=== PATIENT | female | born 1950 | race Caucasian/White ===

== ENCOUNTER 2016-09-07 10:23 | Observation (INO) | payer BC ==
--- NOTE | ~2016-09-07 | OP ---
Record Of Operation [facility] [address] [place]. [address] NAME: SHANIA CHEUNG : 46 STATUS : ADM James PAT#: [id number] AGE: 66 ADM/REG DATE : 09/07/16 MR#: [id number] REPORT SERV DATE: 09/08/16 DICTATED BY: URBAN LINDO DATE: 09/08/16 REPORT STATUS : Draft TRANSCRIBED BY: MODL DATE: 09/08/16 DATE OF PROCEDURE: 09/08/2016 BONIFACIO AND CARDIOVERSION REPORT REQUESTING PROVIDERS: Dr. Krystina England and Dr. Miki Abbott of the AFib Observation Unit. INDICATION: This is a 66-year-old female with atrial fibrillation and rapid ventricular response. She has been on therapeutic Eliquis and oral Cardizem for three to four weeks. Pre-procedure transthoracic echocardiogram demonstrating mitral valve prolapse and mild mitral regurgitation. PROCEDURES PERFORMED: Included 2D, 3D, color, and spectral Doppler. 3D interrogation of the mitral valve was performed with personal online manual manipulation of the 3D data set to further assess mitral valve anatomy. Informed consent was obtained, signed on the chart prior to proceeding. A time-out was performed. Sedation was per Anesthesia, and esophageal intubation was without difficulty. TECH: RECORDING QUALITY: The overall quality of the study was adequate. FINDINGS: Chambers: 1. The left atrium is moderately dilated. The left atrial appendage was examined with multiple angulations and was large with some pectinates but no thrombus identified. Color Doppler findings were normal, and Spectral Doppler velocity exceeded 20 cm/second. 2. The left ventricle is normal in size with a visually estimated LVEF of 60%. There were no regional wall motion abnormalities. 3. The right atrium is at the upper limits of normal in size. Superior and inferior vena cava appeared normal. There was no mass thrombus seen. 4. The right ventricle is normal in size and systolic function. Valves: 1. The aortic valve morphology is trileaflet with adequate mobility. There was trivial aortic regurgitation. 2. 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 Mitral leaflets were mildly thickened, and there was posterior, P2 segment, prolapse noted. There was mild-moderate, somewhat eccentric, anteriorly directed mitral regurgitation seen. 3D interrogation of the mitral valve confirmed thickened mitral leaflets with mild-moderate isolated P2 prolapse. The left superior and right superior pulmonary veins were evaluated with no systolic flow reversal seen. 3. The pulmonic valve was grossly normal with adequate mobility. Pulmonic regurgitation was not assessed. 4. The tricuspid valve morphology was normal with fully mobile leaflets. There was mild Record Of Operation [id number] [place]. [address] NAME: SHANIA CHEUNG : 46 STATUS : ADM James PAT#: [id number] AGE: 66 ADM/REG DATE : 09/07/16 MR#: [id number] REPORT SERV DATE: 09/08/16 DICTATED BY: URBAN LINDO. DATE: 09/08/16 REPORT STATUS : Draft TRANSCRIBED BY: MODL DATE: 09/08/16 tricuspid regurgitation. OTHER: The interatrial septum was examined with multiple angulations and was intact by visual inspection with no evidence of interatrial shunt seen by color Doppler. There was no pericardial effusion. The descending thoracic aorta and aortic arch were normal in caliber with no aneurysmal dilatation and no dissection. There was no significant atherosclerosis seen. There was trivial pleural fluid. CARDIOVERSION: A single synchronized 200 joule biphasic energy shock was delivered with initial conversion from atrial fibrillation RVR to atrial flutter in a 2:1 conduction at a rate of 120 and subsequent and immediate termination to sinus rhythm with occasional PACs and a heart rate of 60 to 70 beats per minute. COMPLICATIONS: None. CONCLUSION: 1. No left atrial or left atrial appendage thrombus. 2. Successful cardioversion to sinus rhythm. 3. Moderate left atrial enlargement. 4. 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 5. Normal LV size with preserved EF, 60%. AEA/MODL Urban Lindo M.D. / [id number] CC: Krystina England, MSN, [employer]-BC Renee Mccabe M.D.
--- NOTE | ~2016-09-07 | HP ---
History And Physical [id number] [facility] [place]. [address] NAME: SHANIA CHEUNG : 46 STATUS : ADM James PAT#: [id number] AGE: 66 ADM/REG DATE : 09/07/16 MR#: [id number] REPORT SERV DATE: 09/07/16 DICTATED BY: GISEL KILGORE DATE: 09/07/16 REPORT STATUS : Draft TRANSCRIBED BY: MODNichole DATE: 09/07/16 DATE OF ADMISSION: 09/07/2016 CARBONATION EQUIPMENT OPERATOR: Ubaldo Fernando M.D. CHIEF COMPLAINT: Worsening shortness of breath with atrial fibrillation. HISTORY OF PRESENT ILLNESS: This is a very pleasant 66-year-old white female with recently identified atrial fibrillation in early July 2016 with plans for scheduled DC CV cardioversion on 09/08/2016, presents to our facility with worsening shortness of breath. The patient states that on September 07 around 0300 hours, she awoke with audible congestion and difficulty breathing. She went to the restroom and with exertion, had an audible rattle. She attempted to lie back down, but was uncomfortable flat. She requires being propped on several pillows. Later in the morning, she notified both her PCP and Dr. Fernando's office about these symptoms and it was recommended that she come to the emergency room for further evaluation and treatment. The patient reports shortness of breath. Denies any nausea, diaphoresis, dizziness, or belching. No chest pain, pressure, or tightness. The patient denies any personal history of myocardial infarction, stroke, DVT, or pulmonary embolus. The patient denies any recent fever, chills, unaware of palpitations. No syncopal episodes. Denies usual PND or orthopnea. Of note, the patient was seen at physician's care on July 23, 2016 for a cough. She was given steroids and antibiotics and then was seen at [facility] on July 28, 2016 for worsening shortness of breath and found to be in atrial fibrillation with RVR. At that time, it was planned that she began Eliquis and Cardizem p.o., which she has continued and she states she has not missed any doses of her Eliquis with a planned cardioversion scheduled for September 08, 2016. Due to the change in her symptoms and the worsening shortness of breath, she came to the hospital today. CHADS-VASC score of 3 for age, gender, and hypertension. PAST MEDICAL HISTORY: 1. Atrial fibrillation with RVR with planned DC CV on 09/08/2016, on Cardizem and Eliquis. 2. Hypertension. 3. Dyslipidemia. 4. Obesity. 5. Denies diabetes. 6. Psoriatic arthritis. 7. Positive family history for early CAD and stroke. PAST SURGICAL HISTORY: 1. Cholecystectomy. 2. Arthroscopic repair of left knee. 3. RK. History And Physical [address] [address] NAME: SHANIA CHEUNG : 46 STATUS : ADM James PAT#: [id number] AGE: 66 ADM/REG DATE : 09/07/16 MR#: [id number] REPORT SERV DATE: 09/07/16 DICTATED BY: GISEL KILGORE DATE: 09/07/16 REPORT STATUS : Draft TRANSCRIBED BY: EMA DATE: 09/07/16 4. Hysterectomy. SOCIAL HISTORY: She is with three children. She works in [employer]. She does not have a structured exercise routine. Denies tobacco, alcohol, or illicits. FAMILY HISTORY: Father with heart failure, of a heart attack at 77, with a history of a stroke. Mother with a history of stroke, at 77. Brother with a heart attack in his late 50s, remains alive at the age of 62 with a history of stroke, stents, and Parkinson's. REVIEW OF SYSTEMS: A fourteen-point review of systems performed, significant for HPI including snores per report with no formal sleep study. Otherwise, complete review of systems obtained and negative. ALLERGIES: LISINOPRIL, ANGIOEDEMA. HOME MEDICINES: Losartan 100 mg daily, ranitidine 300 mg twice daily, Zyrtec 10 mg twice daily, Eliquis 5 mg twice daily, atorvastatin 10 mg nightly, diltiazem CD 240 daily, hydrochlorothiazide 12.5 mg daily, leflunomide 10 mg daily, and [place] twice daily. PHYSICAL EXAMINATION: VITAL SIGNS: Blood pressure 128/86, pulse 114, respirations 18, temperature 97.6. GENERAL: Cooperative, in no apparent distress. HEENT: Pupils 2 mm, sclera nonicteric. Nares patent. Moist mucous membranes. No xanthelasma. NECK: Trachea midline, no thyromegaly. No JVD. No bruits. LYMPH: No cervical lymphadenopathy. No supraclavicular lymphadenopathy. RESPIRATORY: Crackles in bases. CARDIOVASCULAR: Irregularly irregular rate with a variable S1 and S2. . EXTREMITIES: Without edema. Pulses 2+ bilaterally. ABDOMEN: Obese. SKIN: Warm, dry extremities. No pallor, or cyanosis. PSYCHIATRIC: Appropriate affect. Alert, oriented x3. Under abdomen please practice with obese. LABORATORY DATA: Troponin 0.03, second pending. TSH and free T4 pending. Potassium 3.9, BUN 22, creatinine 0.91, glucose 91, and magnesium 1.8. BNP 882. WBC 6.3, hemoglobin 11.8, hematocrit 35.9, and platelet count 165,000. EKG, atrial fibrillation with RVR. Echo, 07/2016: EF 55%. Dilated left atrium. Aortic sclerosis without stenosis. ASSESSMENT AND PLAN: 1. Atrial fibrillation with rapid ventricular response. We will continue Cardizem and Eliquis. The patient will be held n.p.o. after midnight for DC CV on 09/08 at 0[address] [facility] [address] [address] NAME: SHANIA CHEUNG : 46 STATUS : ADM James PAT#: [id number] AGE: 66 ADM/REG DATE : 09/07/16 MR#: [id number] REPORT SERV DATE: 09/07/16 DICTATED BY: GISEL KILGORE DATE: 09/07/16 REPORT STATUS : Draft TRANSCRIBED BY: MODL DATE: 09/07/16 hours, home if successfully cardioverted. To follow up with her primary care physician and Dr. Fernando as appropriate. 2. BNP of 880. Lasix 20 IV x2 doses. Check a BMP in the morning. Electrolyte protocol. 3. Hypertension. Monitor blood pressure. Continue home medications. 4. Dyslipidemia. Continue statin. 5. NOAC. Continue Eliquis 5 mg p.o. b.i.d. Follow up with Dr. Fernando. 6. Hypomagnesemia. Replete per protocol. KAVE[facility]/EMA MARILEE Fiore, DONTRELL- / [id number] CC: MARILEE Fiore, FINANCE PROFESSIONAL- John Loomis M.D.
[~2016-09-07 10:23] MED LIST: ARAVA10 PO; CARDCD240 PO; ELIQUIS 5 MG TAB5 MG PO; HYDROCHLOROT25 MG PO; LIPITOR10 PO; LISINOPRIL40 MG PO; NORV5 PO
[2016-09-07 11:27] LABS: BASOPHILS 0.9 %; BASOPHILS ABSOLUTE 0.06 10/3/uL (0.0-0.16); EOSINOPHILS 1.1 %; EOSINOPHILS ABSOLUTE 0.07 10/3/uL (0.0-0.53); ER CBC TAT 0 Hrs 05 Mins; HEMOGLOBIN 11.8 g/dL (12.0-16.0); IMMATURE GRANULOCYTES 0.2 %; IMMATURE GRANULOCYTES ABSOLUTE 0.01 10/3/uL (0.0-0.11); LYMPHOCYTES 18.3 %; LYMPHOCYTES ABSOLUTE 1.16 10/3/uL (0.67-4.30); MEAN CORPUS HGB CONC 32.9 g/dL (32.0-36.0); MEAN CORPUSCULAR HEMOGLOB 29.9 pg (26.0-34.0); MEAN PLATELET VOLUME 12.8 fL (9.2-13.0); MONOCYTES 9.1 %; MONOCYTES ABSOLUTE 0.58 10/3/uL (0.21-1.20); NEUTROPHILS 70.4 %; NEUTROPHILS ABSOLUTE 4.46 10/3/uL (2.02-8.40); RBC DISTRIBUTION WIDTH 15.7 % (12.0-16.0); RED CELL COUNT 3.95 10/6/uL (4.0-5.6); WHITE BLOOD CELLS 6.3 10/3/uL (4.5-10.5)
[2016-09-07 11:30] LABS: HEMATOCRIT 35.9 % (36.0-48.0); MANUAL DIFF NO %; MEAN CORPUSCULAR VOLUME 90.9 fL (80-100); PLATELET COUNT 165 10/3/uL (150-400)
[2016-09-07 11:32] LABS: ASCORBIC ACID (UR NOT ORDER) NEG (NEG); BILIRUBIN, URINE NEGATIVE (NEG); KETONE, URINE NEGATIVE (NEG); LEUKOCYTE ESTERASE(NOT OR NEG (NEG); NITRITE (URINE) NEG (NEG); WBC (NOT ORDERED) (RFLEX) < 1 (0-5)
[2016-09-07 11:35] LABS: INTERNATIONAL NORMAL RATI 1.5 UNITS (-); PARTIAL THROMBO TIME 27.5 SEC (22.5-37.2)
[2016-09-07] MEDS ORDERED: COZAAR100 MG PO (11:45)
[2016-09-07 11:46] LABS: CALCIUM, SERUM 8.3 MG/DL (8.5-10.4); CHEST PAIN PROFILE TAT 0 Hrs 24 Mins; CHLORIDE, SERUM 108 MMOL/L (96-112); CO2 (CARBON DIOXIDE) 27 MMOL/L (24-34); CREATININE 0.91 MG/DL (0.55-1.02); GFR AFRICAN AMERICAN 75 ML/MIN (>=60); GFR NON AFRICAN AMERICAN 65 ML/MIN (>=60); GLUCOSE, SERUM 91 MG/DL (60-99); POTASSIUM, SERUM 3.9 MMOL/L (3.5-5.3); SODIUM, SERUM 144 MMOL/L (135-148); TROPONIN I 0.03 NG/ML (<0.05)
[2016-09-07] MEDS ORDERED: ZANTAC300 MG PO (11:46)
[2016-09-07] MEDS ORDERED: ZYRTEC ALLGY10 MG PO (11:46)
[2016-09-07] MEDS ORDERED: ELIQUIS 5 MG TAB5 MG PO (11:46)
[2016-09-07] MEDS ORDERED: LIPITOR10 PO (11:47)
[2016-09-07] MEDS ORDERED: MICROZIDE PO (11:47)
[2016-09-07] MEDS ORDERED: CARDCD240 PO (11:47)
[2016-09-07 11:48] LABS: BUN (BLOOD UREA NITROGEN) 22 MG/DL (6-23)
[2016-09-07] MEDS ORDERED: ARAVA10 PO (11:48)
[2016-09-07] MEDS ORDERED: DERMA-SMOOTH EX (11:49)
[2016-09-07 20:58] LABS: BUN (BLOOD UREA NITROGEN) 24 MG/DL (6-23); CALCIUM, SERUM 8.2 MG/DL (8.5-10.4); CHLORIDE, SERUM 107 MMOL/L (96-112); CO2 (CARBON DIOXIDE) 29 MMOL/L (24-34); CREATININE 1.08 MG/DL (0.55-1.02); GFR AFRICAN AMERICAN 61 ML/MIN (>=60); GFR NON AFRICAN AMERICAN 53 ML/MIN (>=60); GLUCOSE, SERUM 143 MG/DL (60-99); POTASSIUM, SERUM 3.5 MMOL/L (3.5-5.3); SODIUM, SERUM 145 MMOL/L (135-148)
[2016-09-08 05:24] LABS: BUN (BLOOD UREA NITROGEN) 23 MG/DL (6-23); CALCIUM, SERUM 8.4 MG/DL (8.5-10.4); CHLORIDE, SERUM 107 MMOL/L (96-112); CO2 (CARBON DIOXIDE) 31 MMOL/L (24-34); CREATININE 1.01 MG/DL (0.55-1.02); GFR AFRICAN AMERICAN 66 ML/MIN (>=60); GFR NON AFRICAN AMERICAN 57 ML/MIN (>=60); SODIUM, SERUM 144 MMOL/L (135-148)
[2016-09-08 05:28] LABS: GLUCOSE, SERUM 106 MG/DL (60-99)
[2016-10-02] MEDS ORDERED: CALAN80 MG PO (18:22)
[2016-10-02] MEDS ORDERED: ELIQUIS 5 MG TAB5 MG PO (18:22)
[2016-10-02] MEDS ORDERED: COZAAR100 MG PO (18:22)
[2016-10-02] MEDS ORDERED: ZYRTEC ALLGY10 MG PO (18:23)
[2016-10-02] MEDS ORDERED: ZANTAC300 MG PO (18:23)
[2016-10-02] MEDS ORDERED: MICROZIDE PO (18:23)
[2016-10-02] MEDS ORDERED: ARAVA10 PO (18:23)
[2016-10-02] MEDS ORDERED: LIPITOR10 PO (18:24)
[2016-10-16] MEDS ORDERED: L20 PO (08:33)
[2016-10-16] MEDS ORDERED: KLOR-CON 1010 MEQ PO (08:33)
[2016-10-16] MEDS ORDERED: DERMA-SMOOTH EX (08:34)
== END 2016-09-08 11:48 | disposition home or self-care (01) ==
LOC: ER 10:23 → CDU1 14:20 → CDU2 14:38
PROVIDERS: Clinical Nurse Specialist; Emergency Medicine
DX: I48.1 Persistent atrial fibrillation (principal); L40.50 Arthropathic psoriasis, unspecified; I34.1 Nonrheumatic mitral (valve) prolapse; E78.5 Hyperlipidemia, unspecified; I10 Essential (primary) hypertension; E66.9 Obesity, unspecified; G47.33 Obstructive sleep apnea (adult) (pediatric); E83.42 Hypomagnesemia; Z79.899 Other long term (current) drug therapy; Z90.49 Acquired absence of other specified parts of digestive tract; Z90.710 Acquired absence of both cervix and uterus; Z98.890 Other specified postprocedural states; Z88.8 Allergy status to other drugs, medicaments and biological substances
CPT/HCPCS: 71010; 80048; 81001; 83735; 83880; 84484; 85025; 85610; 85730; 92960; 93005; 93312; 93320; 93325; 96365; 96366; 96375; 96376; 99285; A9270-GY; G0378; J1940

== ENCOUNTER 2016-10-02 18:52 | Inpatient (IN) | payer BC ==
--- NOTE | ~2016-10-02 | HP ---
History And Physical [place] [address] [place]. [address] NAME: SHANIA CHEUNG : 46 STATUS : ADM IN [facility]#: [id number] AGE: 66 ADM/REG DATE : 10/02/16 MR#: [id number] REPORT SERV DATE: 10/03/16 DICTATED BY: CLARISSE AL DATE: 10/02/16 REPORT STATUS : Draft TRANSCRIBED BY: MODL DATE: 10/02/16 DATE OF ADMISSION: 10/02/2016 CARDIOLOGY ADMISSION HISTORY AND PHYSICAL IDENTIFYING DATA: The patient is a 66-year-old woman with known paroxysmal atrial fibrillation. CHIEF COMPLAINT: Three to four days of insidious onset and progressive worsening exertional dyspnea, orthopnea, paroxysmal nocturnal dyspnea, and lower extremity edema associated with palpitations. HISTORY OF PRESENT ILLNESS: Ms. Cheung is a pleasant 66-year-old woman who is a patient of Dr. Fernando. The patient underwent DC cardioversion in late 07/2016 for symptomatic atrial fibrillation. The patient had a significant improvement in her symptoms of dyspnea and fatigue following cardioversion. Her improvement lasted only about five days, however, before she began to have the onset of palpitations and exertional dyspnea again. She presented to Dr. Fernando's clinic at the end of August, and was found to be in atrial fibrillation. Her heart rate at that time was well controlled, the patient had no documented evidence of congestive heart failure. The patient has been referred to the EP service for consideration of radiofrequency ablation. The patient is being treated with verapamil for rate control. She is on Eliquis for stroke prophylaxis. The patient reports that, aside from her chronic fatigue and dyspnea, she has begun to notice lower extremity edema over the last one to two weeks. She has also had symptoms of orthopnea and paroxysmal nocturnal dyspnea. The patient reports that generally, her palpitations and dyspnea will resolve several hours after she wakes up. However today, the patient experienced dyspnea and fatigue for pretty much the entire day. This prompted an emergency room visit this evening. The patient denies any chest pain. She denies angelito syncope, though she does have some dizziness/lightheadedness associated with her atrial fibrillation. She has no known history of coronary heart disease. The patient's baseline ejection fraction is 55% based on an echocardiogram performed in 07/2016. PAST MEDICAL HISTORY: 1. Paroxysmal atrial fibrillation. 2. Psoriatic arthritis. 3. Hypertension. 4. Gastroesophageal reflux disease. 5. Seasonal allergies. PAST SURGICAL HISTORY: 1. Cholecystectomy. 2. Total abdominal hysterectomy. FAMILY HISTORY: The patient reports that her father of myocardial infarction at age 76. Her mother of complications related to stroke at age 78. There is no family history of History And Physical [address] [address] NAME: SHANIA CHEUNG : 46 STATUS : ADM IN [facility]#: [id number] AGE: 66 ADM/REG DATE : 10/02/16 MR#: [id number] REPORT SERV DATE: 10/03/16 DICTATED BY: CLARISSE LA DATE: 10/02/16 REPORT STATUS : Draft TRANSCRIBED BY: EMA DATE: 10/02/16 early coronary heart disease or sudden cardiac . SOCIAL HISTORY: The patient has no significant history of tobacco, alcohol, or drug use. She has two children, and is unmarried. ALLERGIES: THE PATIENT HAS AN ALLERGY TO LISINOPRIL WHICH CAUSES AN ANGIOEDEMA TYPE REACTION. SHE HAS NO OTHER KNOWN MEDICATION ALLERGIES. HOME MEDICATIONS: 1. Eliquis 5 mg p.o. twice daily. 2. Atorvastatin 10 mg p.o. at bedtime. 3. Cetirizine 10 mg p.o. q.a.m. 4. Hydrochlorothiazide 12.5 mg p.o. q.a.m. 5. Leflunomide 100 mg p.o. q.a.m. 6. Losartan 100 mg p.o. q.a.m. 7. Ranitidine 300 mg p.o. q.a.m. 8. Verapamil 80 mg p.o. three times daily. REVIEW OF SYSTEMS: A complete 12-system review was performed. This is noncontributory except for the pertinent positives and negatives noted in the history of present illness above. PHYSICAL EXAMINATION: VITAL SIGNS: Temperature is 98 degrees Fahrenheit, blood pressure is 137/85 mmHg, heart rate is initially 140 beats per minute on admission, but is now fluctuating between 110 and 130 beats per minute, respirations 18, oxygen saturation is 97% on 2 L nasal cannula. CONSTITUTIONAL: The patient is an obese white woman, who is in no acute distress. EYES: PERRL, EOMI, clear conjunctiva. HEAD/MNT: NCAT with moist mucous membranes and grossly normal hard and soft palate. NECK: Supple with no obvious thyromegaly or lymphadenopathy CARDIOVASCULAR: There is an irregularly irregular rhythm with a variable S1 and a physiologically split second heart sound. No significant murmurs, rubs, or gallops are noted. The jugular venous pressure does appear to be significantly elevated at greater than 15 cm. PULMONARY: Clear to auscultation bilaterally with no wheezing, rales, rhonchi, or dullness to percussion noted. ABDOMINAL: Soft, non-tender, non-distended with no hepatosplenomegaly noted. EXTREMITIES: There is 1+ pitting edema below the knees bilaterally. No clubbing or cyanosis is noted. MUSCULOSKELETAL: Grossly normal strength and range of motion in all extremities INTEGUMENTARY: Skin appears intact with no bruises, wounds or active lesions noted NEURO/PSYC: Alert and oriented x3, with no dysarthria, facial droop or lateralizing weakness noted. DATA: 12-lead EKG: The 12-lead EKG shows atrial fibrillation with a rapid ventricular response and a ventricular rate of 144 beats per minute. There is diffuse ST-segment flattening in the lateral leads suggestive of ischemia. History And Physical [address] [address] NAME: SHANIA CHEUNG : 46 STATUS : ADM IN [facility]#: [id number] AGE: 66 ADM/REG DATE : 10/02/16 MR#: [id number] REPORT SERV DATE: 10/03/16 DICTATED BY: CLARISSE AL DATE: 10/02/16 REPORT STATUS : Draft TRANSCRIBED BY: EMA DATE: 10/02/16 Chest x-ray: The chest x-ray shows no acute cardiopulmonary process, and no significant pulmonary edema. LABORATORY: Chemistry shows a sodium of 144, potassium is 3.6, chloride is 106, CO2 is 25, BUN 19, creatinine is 0.81, glucose is 84, calcium 8.6, magnesium is 1.7. Troponin I is less than 0.02. Cell count show a white blood cell count of 6.3, hemoglobin 12, hematocrit 38, platelets 206. INR is 1.6. PTT is 29. ASSESSMENT AND PLAN: 1. Atrial fibrillation with rapid ventricular response: The patient's heart rate is relatively uncontrolled at this time. She is on verapamil 80 mg p.o. three times daily. Given the evidence of congestive heart failure, we will transition to a beta pierre. We will start metoprolol 25 mg p.o. twice daily and give first dose now. We will consider a diltiazem drip if necessary for heart rate control, the patient is near goal at this time as long as she is at rest. We will consider DC cardioversion on Wednesday versus a rate control strategy with referral to EP for consideration of ablation as described in the history of present illness. The patient has a sleep study ordered, however, this is not yet been performed. It would probably be advisable to complete a sleep study prior to any further EP procedures so that sleep apnea may be adequately treated at present to prevent recurrence of atrial fibrillation. The patient will continue Eliquis for stroke prophylaxis. 2. Acute diastolic congestive heart failure: Most likely secondary to #1. The patient will be given Lasix 40 mg IV x1 now, and then 20 mg IV q.12 hours until her shortness of breath and edema have resolved. The patient will continue losartan. We will consider transitioning from hydrochlorothiazide to Aldactone depending on the patient's response to therapy. Thyroid function studies will be obtained. We will obtain a B- type natriuretic peptide. 3. The patient will be started on magnesium oxide for mild hypomagnesemia. 4. Hypertension, controlled, we will continue current medical therapy with changes outlined above. [facility]/EMA Clarisse Al MD / [id number] CC: Caprice Perry M.D. History And Physical [address] [address] NAME: SHANIA CHEUNG AKUA : 46 STATUS : ADM IN [facility]#: [id number] AGE: 66 ADM/REG DATE : 10/02/16 MR#: [id number] REPORT SERV DATE: 10/03/16 DICTATED BY: CLARISSE AL DATE: 10/02/16 REPORT STATUS : Draft TRANSCRIBED BY: EMA DATE: 10/02/16 Renee Mccabe M.D.
[2016-10-02 15:55] LABS: BASOPHILS 0.8 %; BASOPHILS ABSOLUTE 0.05 10/3/uL (0.0-0.16); EOSINOPHILS 1.3 %; EOSINOPHILS ABSOLUTE 0.08 10/3/uL (0.0-0.53); ER CBC TAT 0 Hrs 09 Mins; HEMATOCRIT 37.7 % (36.0-48.0); HEMOGLOBIN 12.4 g/dL (12.0-16.0); IMMATURE GRANULOCYTES 0.2 %; IMMATURE GRANULOCYTES ABSOLUTE 0.01 10/3/uL (0.0-0.11); LYMPHOCYTES 28.3 %; LYMPHOCYTES ABSOLUTE 1.78 10/3/uL (0.67-4.30); MEAN CORPUS HGB CONC 32.9 g/dL (32.0-36.0); MEAN CORPUSCULAR HEMOGLOB 29.5 pg (26.0-34.0); MEAN CORPUSCULAR VOLUME 89.8 fL (80-100); MEAN PLATELET VOLUME 12.9 fL (9.2-13.0); MONOCYTES 8.9 %; MONOCYTES ABSOLUTE 0.56 10/3/uL (0.21-1.20); NEUTROPHILS 60.5 %; PLATELET COUNT 206 10/3/uL (150-400); RBC DISTRIBUTION WIDTH 15.3 % (12.0-16.0); WHITE BLOOD CELLS 6.3 10/3/uL (4.5-10.5)
[2016-10-02 15:57] LABS: MANUAL DIFF NO %
[2016-10-02 16:05] LABS: INTERNATIONAL NORMAL RATI 1.6 UNITS (-); PARTIAL THROMBO TIME 29.1 SEC (22.5-37.2); PROTIME (NOT ORD) 19.1 SEC (12.0-14.5)
[2016-10-02 16:10] LABS: CALCIUM, SERUM 8.6 MG/DL (8.5-10.4); CHEST PAIN PROFILE TAT 0 Hrs 24 Mins; CHLORIDE, SERUM 106 MMOL/L (96-112); CREATININE 0.81 MG/DL (0.55-1.02); GFR AFRICAN AMERICAN 86 ML/MIN (>=60); GFR NON AFRICAN AMERICAN 75 ML/MIN (>=60); POTASSIUM, SERUM 3.6 MMOL/L (3.5-5.3); SODIUM, SERUM 144 MMOL/L (135-148); TROPONIN I <0.02 NG/ML (<0.05)
[2016-10-02 16:11] LABS: BUN (BLOOD UREA NITROGEN) 19 MG/DL (6-23); CO2 (CARBON DIOXIDE) 25 MMOL/L (24-34); GLUCOSE, SERUM 84 MG/DL (60-99)
[~2016-10-02 18:52] MED LIST changes: +CALAN80 MG PO; +COZAAR100 MG PO; +DERMA-SMOOTH EX; +MICROZIDE PO; +ZANTAC300 MG PO; +ZYRTEC ALLGY10 MG PO
[2016-10-02 21:20] LABS: ULTRASENSITIVE TSH 0.634 MCIU/ML (0.358-3.740)
[2016-10-03 04:22] LABS: BASOPHILS 0.8 %; BASOPHILS ABSOLUTE 0.05 10/3/uL (0.0-0.16); EOSINOPHILS 1.8 %; EOSINOPHILS ABSOLUTE 0.11 10/3/uL (0.0-0.53); HEMATOCRIT 37.9 % (36.0-48.0); HEMOGLOBIN 12.3 g/dL (12.0-16.0); IMMATURE GRANULOCYTES 0.2 %; IMMATURE GRANULOCYTES ABSOLUTE 0.01 10/3/uL (0.0-0.11); LYMPHOCYTES 27.1 %; LYMPHOCYTES ABSOLUTE 1.62 10/3/uL (0.67-4.30); MANUAL DIFF NO %; MEAN CORPUS HGB CONC 32.5 g/dL (32.0-36.0); MEAN CORPUSCULAR HEMOGLOB 29.4 pg (26.0-34.0); MEAN CORPUSCULAR VOLUME 90.7 fL (80-100); MEAN PLATELET VOLUME 12.8 fL (9.2-13.0); MONOCYTES 10.7 %; MONOCYTES ABSOLUTE 0.64 10/3/uL (0.21-1.20); NEUTROPHILS 59.4 %; NEUTROPHILS ABSOLUTE 3.55 10/3/uL (2.02-8.40); PLATELET COUNT 185 10/3/uL (150-400); RBC DISTRIBUTION WIDTH 15.3 % (12.0-16.0); RED CELL COUNT 4.18 10/6/uL (4.0-5.6)
[2016-10-03 05:20] LABS: BUN (BLOOD UREA NITROGEN) 18 MG/DL (6-23); CHLORIDE, SERUM 106 MMOL/L (96-112); CO2 (CARBON DIOXIDE) 28 MMOL/L (24-34); CREATININE 0.83 MG/DL (0.55-1.02); GFR AFRICAN AMERICAN 84 ML/MIN (>=60); GFR NON AFRICAN AMERICAN 72 ML/MIN (>=60); GLUCOSE, SERUM 81 MG/DL (60-99); POTASSIUM, SERUM 3.6 MMOL/L (3.5-5.3); SODIUM, SERUM 146 MMOL/L (135-148)
[2016-10-04 05:22] LABS: CALCIUM, SERUM 8.5 MG/DL (8.5-10.4); CHLORIDE, SERUM 103 MMOL/L (96-112); CO2 (CARBON DIOXIDE) 29 MMOL/L (24-34); GFR AFRICAN AMERICAN 76 ML/MIN (>=60); GFR NON AFRICAN AMERICAN 66 ML/MIN (>=60); GLUCOSE, SERUM 82 MG/DL (60-99); POTASSIUM, SERUM 3.5 MMOL/L (3.5-5.3); SODIUM, SERUM 143 MMOL/L (135-148)
[2016-10-04 05:23] LABS: BUN (BLOOD UREA NITROGEN) 25 MG/DL (6-23)
[2016-10-04] MEDS ORDERED: CALAN80 MG PO (13:06)
[2016-10-04] MEDS ORDERED: LOP25 PO (13:08)
[2016-10-04] MEDS ORDERED: SPIRO25 PO (13:08)
[2016-10-16] MEDS ORDERED: KLOR-CON 1010 MEQ PO (08:33)
[2016-10-16] MEDS ORDERED: L20 PO (08:33)
[2016-10-16] MEDS ORDERED: DERMA-SMOOTH EX (08:34)
== END 2016-10-04 14:00 | disposition home or self-care (01) | DRG 308 ==
LOC: ER 18:52 → 5NO 19:31
PROVIDERS: Hospitalist; Internal Medicine; Internal Medicine Cardiovascular Disease
DX: I48.0 Paroxysmal atrial fibrillation (principal); I50.31 Acute diastolic (congestive) heart failure; L40.50 Arthropathic psoriasis, unspecified; I11.0 Hypertensive heart disease with heart failure; K21.9 Gastro-esophageal reflux disease without esophagitis; Z90.710 Acquired absence of both cervix and uterus; Z90.49 Acquired absence of other specified parts of digestive tract; Z79.01 Long term (current) use of anticoagulants
CPT/HCPCS: 71020; 80048; 83735; 83880; 84439; 84443; 84484; 85025; 85610; 85730; 93005; 96374; 99285; A9270-GY; G0378; J1940

== ENCOUNTER 2016-12-07 06:53 | Inpatient (IN) | payer BC ==
[2016-11-30 16:42] LABS: BASOPHILS 0.6 %; BASOPHILS ABSOLUTE 0.05 10/3/uL (0.0-0.16); EOSINOPHILS 0.7 %; EOSINOPHILS ABSOLUTE 0.06 10/3/uL (0.0-0.53); HEMATOCRIT 42.7 % (36.0-48.0); HEMOGLOBIN 14.1 g/dL (12.0-16.0); IMMATURE GRANULOCYTES 0.4 %; IMMATURE GRANULOCYTES ABSOLUTE 0.04 10/3/uL (0.0-0.11); LYMPHOCYTES 22.1 %; MANUAL DIFF NO %; MEAN CORPUSCULAR HEMOGLOB 29.6 pg (26.0-34.0); MEAN CORPUSCULAR VOLUME 89.7 fL (80-100); MEAN PLATELET VOLUME 13.4 fL (9.2-13.0); MONOCYTES 8.2 %; MONOCYTES ABSOLUTE 0.74 10/3/uL (0.21-1.20); NEUTROPHILS ABSOLUTE 6.18 10/3/uL (2.02-8.40); PLATELET COUNT 189 10/3/uL (150-400); RBC DISTRIBUTION WIDTH 15.1 % (12.0-16.0); RED CELL COUNT 4.76 10/6/uL (4.0-5.6); WHITE BLOOD CELLS 9.1 10/3/uL (4.5-10.5)
[2016-11-30 16:48] LABS: INTERNATIONAL NORMAL RATI 1.3 UNITS (-); PROTIME (NOT ORD) 16.4 SEC (12.0-14.5)
[2016-11-30 17:36] LABS: ASCORBIC ACID (UR NOT ORDER) NEG (NEG); BILIRUBIN, URINE NEGATIVE (NEG); KETONE, URINE NEGATIVE (NEG); LEUKOCYTE ESTERASE(NOT OR NEG (NEG); WBC (NOT ORDERED) (RFLEX) 1 (0-5)
[2016-12-01 12:47] LABS: % IRON SAT 23 % (20-50); ALBUMIN 3.7 G/DL (3.5-5.0); ALKALINE PHOSPHATASE 94 U/L (45-117); CALCIUM, SERUM 9.4 MG/DL (8.5-10.4); CHLORIDE, SERUM 107 MMOL/L (96-112); CO2 (CARBON DIOXIDE) 26 MMOL/L (24-34); CREATININE 1.26 MG/DL (0.55-1.02); GFR AFRICAN AMERICAN 51 ML/MIN (>=60); GFR NON AFRICAN AMERICAN 44 ML/MIN (>=60); GLOBULIN 3.8 G/DL (2.5-4.1); GLUCOSE, SERUM 96 MG/DL (60-99); IRON BINDING CAPACITY 354 MCG/DL (225-410); IRON, SERUM 80 MCG/DL (35-150); POTASSIUM, SERUM 4.6 MMOL/L (3.5-5.3); SGOT(AST) 17 U/L (5-40); SGPT(ALT) 24 U/L (5-65); SODIUM, SERUM 140 MMOL/L (135-148); TOTAL BILIRUBIN 0.7 MG/DL (0-1.2); TOTAL PROTEIN 7.5 G/DL (6.0-8.5)
[2016-12-01 12:49] LABS: BUN (BLOOD UREA NITROGEN) 20 MG/DL (6-23)
--- NOTE | ~2016-12-07 | OP ---
Record Of [facility] [address] [place]. [address] NAME: SHANIA CHEUNG : 46 STATUS : ADM IN PAT#: [id number] AGE: 66 ADM/REG DATE : 12/07/16 MR#: [id number] REPORT SERV DATE: 12/08/16 DICTATED BY: ABHIJIT MALONE DATE: 12/07/16 REPORT STATUS : Draft TRANSCRIBED BY: MODL DATE: 12/07/16 DATE OF PROCEDURE: 12/07/2016 PREOPERATIVE DIAGNOSES: 1. Chronic persistent atrial fibrillation. 2. Mitral valve insufficiency. 3. Tricuspid valve insufficiency. 4. Chronic systolic heart failure (ejection fraction 40%). 5. Left atrial thrombus. 6. Morbid obesity. POSTOPERATIVE DIAGNOSES: 1. Chronic persistent atrial fibrillation. 2. Mitral valve insufficiency. 3. Tricuspid valve insufficiency. 4. Chronic systolic heart failure (ejection fraction 40%). 5. Left atrial thrombus. 6. Morbid obesity. PROCEDURES PERFORMED: 1. Mitral valve repair with triangular valvuloplasty and closure of cleft. 2. Mitral valve annuloplasty using a 30 mm annuloplasty ring system (Physio II). 3. Tricuspid valve repair using a 26 mm annuloplasty ring system (MC3). 4. Extended Roman maze IV procedure on cardiopulmonary bypass using radiofrequency ablation and cryoablation. 5. Transesophageal echocardiography. SURGEON: Abhijit Malone MD ASSISTANTS: Arlen Daly and Finn Burgess. ANESTHESIA: General, Dr. Pennington. PANTS CLOSER: Ubaldo Fernando MD. EP PANTS CLOSER: Patrick Menjivar MD INDICATIONS: This is a morbidly obese 66-year-old female who has a history of chronic persistent atrial fibrillation. She was referred to Dr. Fernando and she underwent echocardiography, and was also referred to Dr. Menjivar for possible ablation. She has a history of previous cardioversion x1. She was subsequently anticoagulated and then was being evaluated for percutaneous ablation with Dr. Menjivar. On BONIFACIO, she was found to have clot in the left atrial appendage with reduced left ventricular function. The patient was then referred to us for possible consideration for surgical maze procedure following coronary artery evaluation and possible mitral valve repair or replacement. The patient has significant dyspnea with exertion and has been admitted for congestive heart failure. Heart Record Of [facility] [address] [place]. [address] NAME: SHANIA CHEUNG : 46 STATUS : ADM IN PAT#: [id number] AGE: 66 ADM/REG DATE : 12/07/16 MR#: [id number] REPORT SERV DATE: 12/08/16 DICTATED BY: ABHIJIT MALONE DATE: 12/07/16 REPORT STATUS : Draft TRANSCRIBED BY: MODL DATE: 12/07/16 catheterization did not demonstrate any significant coronary artery disease. We discussed possible mitral valve repair or replacement along with a Roman maze IV procedure. After a lengthy discussion of operations, its indication and risks, they wished to proceed. STS predicted risk of mortality was not obtained for the combined maze and mitral procedure because it is not accounted for on the application. FINDINGS: 1. Cross-clamp of 162 minutes with a pump time of 200 minutes. 2. The mitral valve had a flail P2 cusp with ruptured chords. There is a fairly good- sized cleft between P2 and P3 that we also closed. There, we performed a triangular resection of this flail portion of P2. In addition, there was an area of calcium where the secondary chords insert into the valve and these were calcified. This resulted in tenting of this portion of the mitral valve leaflet. During our triangular resection, we also resected this portion of the secondary chords that had been calcified. In addition to repairing the P2 cusp, the cleft between P2 and P3 was closed with a single horizontal mattress suture of 5-0 Prolene. 3. A 30 mm Physio II annuloplasty ring system was implanted with good results. Seventeen Cor-Knots were used to secure this in place. 4. The tricuspid valve had annular dilatation with measurements of 39.5 mm on BONIFACIO. In addition, there was [id number] tricuspid valve insufficiency noted on BONIFACIO. This valve was repaired using a 26 mm MC3 ring annuloplasty system. Sixteen Cor-Knots were used to secure this in place. The leaflets of the tricuspid valve did not appear to be myxomatous and there were no rough flail cords noted. 5. The Roman IV maze procedure was performed on cardiopulmonary bypass using the AtriCure radiofrequency ablation and cryoablation probes. Please refer to the Roman maze for lesion set checklist found on the operative record. Because of the patient's persistent atrial fibrillation, we did not do intraoperative conduction testing at the pulmonary vein isolation sites. 6. We did ligate and amputate the left atrial appendage. There was clot seen in the left atrial appendage and this was removed. The left atrial appendage was a little bit odd- shaped. It was a combination of a saddle shape and it had a chicken wing deformity. The left atrial appendage was amputated at its base using thoracoscopic stapler and 60 mm purple staple load. 7. BONIFACIO at the beginning of the operation showed a small left atrial clot. There was severe mitral insufficiency with an eccentric jet that was anteriorly directed. There was also [id number] tricuspid valve insufficiency. 8. The completion BONIFACIO after valvular repair and maze procedure demonstrated the possibility of a small clot that was seen tumbling in the left atrium. At this point, we immediately emptied the heart and re-arrested the heart and then opened the left atrium to determine if there was clot and a small clot was removed. We irrigated the left ventricle copiously and inspected this visually and did not see any clot. In addition, the ascending aorta was opened and we did not see any clot in the ascending aorta or behind the aortic valve or in the coronary ostia. 9. Concluding BONIFACIO at the end of the operation demonstrated good ventricular function. There was no residual clot seen in the left atrium. Mitral and tricuspid valve repairs were competent with no insufficiency seen on BONIFACIO and very low gradients across these valves. Record Of Operation [facility] [address] [place]. [address] NAME: SHANIA CHEUNG : 46 STATUS : ADM IN [facility]#: [id number] AGE: 66 ADM/REG DATE : 12/07/16 MR#: [id number] REPORT SERV DATE: 12/08/16 DICTATED BY: ABHIJIT MALONE DATE: 12/07/16 REPORT STATUS : Draft TRANSCRIBED BY: MODL DATE: 12/07/16 PATHOLOGIC SPECIMENS: Include left atrial appendage and clot in the left atrium. DESCRIPTION OF PROCEDURE: The patient was brought to the operating suite, general anesthesia was induced, and the airways secured with an endotracheal tube. Lines were secured by Anesthesia. Martinez catheter was placed. The patient's chest, abdomen, groin, and legs were prepped with Hibiclens and ChloraPrep and draped with Ioban sterile sheets. BONIFACIO probe was placed by Dr. Pennington and examination was carried out as discussed above. There was significant tricuspid and mitral valve insufficiency. There was a small clot in the left atrial appendage noted. A midline sternal incision was made and the sternum opened with a saw. A Odilia retractor was placed and the pericardium opened from the innominate vein, and the diaphragm was T'd and tacked to sides of the chest wall. Lines passed from the field for cardiopulmonary bypass and cleared of air. Heparin was administered by Anesthesia. Cannulation pursestring sutures were placed in the aorta and the right atrial appendage. Aortic cannulation was carried out first. We then performed a portion of the right-sided lesion set of the maze with the right atrial appendage lesion and then cannulation with a venous cannula. A second pursestring suture was placed at the orifice of the inferior vena cava and a second venous cannula was placed in the inferior vena cava and secured. When all was in readiness, the patient was placed on cardiopulmonary bypass. We continued with the maze procedure on the right side. Through a small puncture site in the right atrium, superior and inferior vena cava lesion set was created along with a lateral wall atrial lesion. We planned to do the vertical right atriotomy during the tricuspid valve repair. Plans were also made to perform a tricuspid annular lesion at that time. We did perform a coronary sinus lesion at this time. Then, we dissected around the confluence of the right pulmonary vein and the AtriCure bipolar clamp was placed around this and right pulmonary vein isolation was carried out. We did not do testing because of persistent atrial fibrillation, and we did not manipulate the left atrial appendage or the left side of the heart for the maze procedure at this point. The aorta was then cross-clamped. Initial dose of cold crystalloid cardioplegia using mcfp solution was administered antegrade for a total of 1.5 L. During this time, the left atriotomy was made through the interatrial groove of [place] that had been dissected. A sucker was placed in the left atrium. The heart was gently rotated towards the surgeon. With the cross-clamp in place, we performed the left pulmonary vein circumferential dissection and then the left pulmonary vein isolation using the AtriCure bipolar clamp. Following this first dose of cardioplegia, we continued with the maze procedure on the left side. Superior and inferior dome lesions were created and a lesion was created from the left PVI to the base of the left atrial appendage where another lesion had been made. Once this was completed, the left atrial appendage was grasped. It was ligated and amputated at its base using thoracoscopic stapler and 60 mm purple staple load. On retrieval of the left atrium, the small clot was noted at this staple line. We then inspected inside the left atrium and found a small residual clot in the left atrium that was sent for pathologic examination. Then, we used the cryoablation probe to perform the mitral annular lesion to complete the left side portion of the maze procedure. Once this was completed, we irrigated the left atrium and left ventricle copiously to remove any additional clot and none was seen. Record Of Operation [place] [address] [facility] [address] [place]. [address] NAME: SHANIA CHEUNG : 48 STATUS : ADM IN PAT#: [id number] AGE: 66 ADM/REG DATE : 12/07/16 MR#: [id number] REPORT SERV DATE: 12/08/16 DICTATED BY: ABHIJIT MALONE DATE: 12/07/16 REPORT STATUS : Draft TRANSCRIBED BY: EMA DATE: 12/07/16 We then used the Odilia retractor apparatus to position the left atrium to allow good visualization of the mitral valve. The mitral valve was inspected. The P2 cusp that was noted to be flail on BONIFACIO did have a ruptured chord. I felt there was a significant cleft between P2 and P3. In addition, there was subvalvular calcification sort of pushing up or tenting this area of P2. We decided to go ahead and do a triangular resection of the P2 cusp that had a flail leaflet. This area was excised and while this was opened, we debrided this calcific material from the underside of the P2 cusp. One secondary chord was removed with this calcification. Once the excision of the portion of P2 had been carried out, it was reapproximated to eliminate this flail segment with interrupted horizontal mattress sutures of 5-0 Prolene. We then used iced saline to distend the left ventricle and observe the repair. The cleft between P2 and P3 became more evident and then we elected to close this with a single horizontal mattress suture of 5-0 Prolene extending between P2 and P3. Another test with iced saline demonstrated less of a leak and I was satisfied that the annuloplasty ring system would help to reinforce and support this repair. A 30 mm Physio II annuloplasty ring system was selected. Interrupted nonpledgeted sutures of 2-0 Tycron were placed circumferentially about the mitral valve annulus. The sutures were passed through the cuff of the annuloplasty ring. This was lowered into position and each suture was individually secured and divided using a Cor-Knot device. A total of 17 Cor-Knots were utilized. Iced saline injection through the orifice of the mitral valve after repair demonstrated a competent mitral valve repair. Next, an LV vent was placed through the right superior pulmonary vein and directed through the mitral valve into the left ventricle and this was secured. The left atriotomy was then closed in a two-layer fashion with running pledgeted suture of 4-0 Prolene. We turned our attention next towards the right atrium and tricuspid valve. A lateral right atriotomy was made corresponding to the lesion created typically with the Roman maze IV procedure. We then used the cryoprobe to complete the tricuspid annular lesion for the portion of the right-sided lesion set for the maze procedure. Once this was completed, a retractor was placed and we examined the valve. The valve leaflets appeared thin and pliable. There were no ruptured chordae. The annulus of the valve was known to be enlarged on BONIFACIO and indeed it did appear this way on inspection. We then sized the valve and a 26 mm MC3 annuloplasty ring system was selected. Interrupted nonpledgeted sutures of 2-0 Tycron were placed circumferentially about the tricuspid valve annulus in a horizontal mattress fashion. We skipped over the area of the AV node conduction system. The sutures were then passed through the sewing cuff of the annuloplasty ring. This was lowered into position and each suture was individually secured and divided using a Cor-Knot device. A total of 16 Cor Knots were used to secure the ring in place. Iced saline injection through the orifice of the tricuspid valve demonstrated no significant insufficiency. Warming was then begun. The right atriotomy was closed in a two-layer fashion with running nonpledgeted suture of 6-0 Prolene. Then, the patient was placed in slight Trendelenburg. The left ventricle and ascending aorta were de-aired and the aortic cross-clamp was removed. The heart was allowed to rest on cardiopulmonary bypass and low-dose inotropic agents were started. The heart resumed a slow junctional rhythm and was paced in an AV fashion at a Record Of Operation [place] [address] [facility] [place]. [address] NAME: SHANIA CHEUNG : 46 STATUS : ADM IN PAT#: [id number] AGE: 66 ADM/REG DATE : 12/07/16 MR#: [id number] REPORT SERV DATE: 12/08/16 DICTATED BY: ABHIJIT MALONE DATE: 12/07/16 REPORT STATUS : Draft TRANSCRIBED BY: MODL DATE: 12/07/16 rate of 80. Ventilations were begun. When the heart demonstrated good contractility, it was slowly allowed to fill. At the beginning of the heart starting to eject, Dr. Pennington did a BONIFACIO and demonstrated a possible floating structure in the left atrium. We immediately emptied the heart and then [id number] the aorta. Another dose of cold blood cardioplegia was given in an antegrade fashion. We next reopened the left atriotomy site. Aspiration of the left atriotomy did demonstrate a small clot in the left atrium. This was removed and sent for pathologic examination. We irrigated the left atrium copiously. I reinspected the staple line from the left atrial appendage closure and it appeared to be complete without gaps. We then inspected through the orifice of the mitral valve into the left ventricle and no additional clot material was seen. At this point, we placed the left ventricular vent back into the left ventricle. The left atriotomy was re-closed with running pledgeted suture of 4-0 Prolene in a two-layer fashion. Next, a small aortotomy incision was made at the sinotubular junction. We were able to open the aorta and inspected the ascending aorta and no clot was observed. We also inspected the leaflets of the aortic valve and they appeared to be intact and no clot seen around them, and no clot in the orifices of the coronary arteries. We inspected through the aortic valve into the left ventricle and again no clot was seen in the apex of the left ventricle. We then irrigated the left ventricle and ascending aorta copiously with iced saline to remove any particulate matter or clot. Then, the aortotomy incision was closed in a two-layer fashion with running pledgeted suture of 5-0 Prolene. The patient was placed in slight Trendelenburg position and the ascending aorta and left ventricle were again de-aired. The aortic cross-clamp was removed. The heart was allowed to rest on cardiopulmonary bypass again. After a period of rest, ventilation was begun and the heart was paced in AV sequential fashion at a rate of 80. When the heart demonstrated good contractility, it was allowed to fill. Before ejection occurred and with the heart full, Dr. Pennington re-performed echocardiography and could not see any clot or foreign material in the left atrium. De-airing was monitored with BONIFACIO, and when deairing was completed, the LV vent was removed and each pursestring suture was tied. The ascending aortic vent was likewise removed and each pursestring suture was tied and reinforced. The patient was then weaned from cardiopulmonary bypass with inotropic support. The venous cannulas were removed and each pursestring suture was tied. BONIFACIO examination demonstrated improved ventricular function on inotropic support. The mitral and tricuspid valve repairs were adequate with trivial or no insufficiency noted. There was no significant gradient across either valve. Protamine was administered by Anesthesia and following a period of hemodynamic stability, the aortic cannula was removed and each pursestring suture was tied and reinforced. The patient continued to do well and chest was irrigated copiously with saline. Meticulous hemostasis was obtained. Hemasorb was placed along the cut edge of the sternum. Once Record Of Operation [address] [place]. [address] NAME: SHANIA CHEUNG : 46 STATUS : ADM IN [facility]#: [id number] AGE: 66 ADM/REG DATE : 12/07/16 MR#: [id number] REPORT SERV DATE: 12/08/16 DICTATED BY: ABHIJIT MALONE DATE: 12/07/16 REPORT STATUS : Draft TRANSCRIBED BY: MODL DATE: 12/07/16 hemostasis was assured, the pericardium was draped over the anterior surface of the heart. Atrial and ventricular pacing wires that had been placed earlier were brought out through separate sites and secured to the skin. Then, chest tubes were placed and the sternum reapproximated with 8 sternal wires. The clavipectoral fascia and linea alba were closed with #1 Stratafix. The subcutaneous tissue was closed and skin was closed in subcuticular fashion. The patient tolerated the procedure well. There were no complications. Sponge and needle counts were correct. DISPOSITION: The patient was left intubated, sedated, and transported to the Intensive Care Unit in stable condition. ELIEZER/EMA Abhijit Malone M.D. / [id number] CC: John Purcell M.D. Robert Berglund, M.D. Gregory Keith Bruce, M.D.
--- NOTE | ~2016-12-07 | DS ---
Discharge Summary [place] [id number] [place]. [address] NAME: SHANIA CHEUNG : 46 STATUS : DIS IN PAT#: [id number] AGE: 66 ADM/REG DATE : 12/07/16 MR#: [id number] REPORT SERV DATE: 12/25/16 DICTATED BY: ABHIJIT MALONE DATE: 12/25/16 REPORT STATUS : Draft TRANSCRIBED BY: EMA DATE: 12/25/16 Data Collection from hospitalization DISCHARGE DIAGNOSES: 1. Atrial fibrillation. 2. Tricuspid valve insufficiency. 3. Mitral valve insufficiency. 4. Hypertension. 5. Obstructive sleep apnea. 6. Morbidly obese. 7. Chronic systolic heart failure. CONSULTATIONS: Jonnie Catherine M.D. PROCEDURES PERFORMED: Mitral valve repair with triangular valvuloplasty and closure of cleft, mitral valve annuloplasty using a 30 mm annuloplasty ring system (Physio II), tricuspid valve repair using a 26 mm annuloplasty ring system (MC3), extended Roman Maze IV procedure on cardiopulmonary bypass using radiofrequency ablation and cryoablation, transesophageal echocardiography on 12/07/2016. PATHOLOGY: Blood clot consistent with thrombus, left atrium, atrial appendage, left resection - myocyte hypertrophy, fatty infiltration, extensive interstitial fibrosis, multifocal endocardial fibroelastosis, focal; leaflet P2 - myxomatous change, lymphocytic infiltrate, focal. MEDICATIONS: Cordarone 200 mg twice a day, aspirin 81 mg daily, Lipitor 40 mg at bedtime, Coreg 3.125 mg twice a day, Lasix 20 mg daily, Palmer 5/325 one to two tablets every four hours as needed, Arava 10 mg every morning, Cozaar 25 mg daily, Zantac 300 mg every morning, Aldactone 25 mg daily, and Coumadin at bedtime as instructed. She was instructed not to continue metoprolol (Lopressor) or apixaban (Eliquis). HOSPITAL COURSE: This is a morbidly obese, 66-year-old female, who has a history of chronic persistent atrial fibrillation. She had been referred to Dr. Fernando and had undergone echocardiography and had been referred to Dr. Menjivar for possible ablation. She has a history of previous cardioversion x1. She was subsequently anticoagulated and was being evaluated for percutaneous ablation with Dr. Menjivar. On transesophageal echocardiogram, she was found to have a clot in the left atrial appendage with reduced left ventricular function. She had been referred us for possible consideration for surgical Maze procedure following coronary artery evaluation and possible mitral valve repair or replacement. The patient has significant dyspnea with exertion and had been admitted for congestive heart failure. Cardiac catheterization did not demonstrate significant coronary artery disease. Treatment options were discussed and it was elected to proceed with surgical intervention. She was admitted to the hospital for further evaluation and treatment. Upon admission, she was taken to the operating room where she underwent the above-mentioned procedure. She tolerated this well, and there were no complications. On postop day #1, she was up sitting in a chair. Chest x-ray showed left pleural effusion. Pacers were being weaned as tolerated. She has an ejection fraction of 40%. She was seen by Dr. Jonnie Betancur [address] [address] NAME: SHANIA CHEUNG : 46 STATUS : DIS IN PAT#: [id number] AGE: 66 ADM/REG DATE : 12/07/16 MR#: [id number] REPORT SERV DATE: 12/25/16 DICTATED BY: ABHIJIT MALONE DATE: 12/25/16 REPORT STATUS : Draft TRANSCRIBED BY: MODL DATE: 12/25/16 Florin. She had no complaints of chest pain. Her abdomen was soft and nontender. Creatinine level was 1.48. She was being observed in the Cardiovascular ICU. On 12/09/2016, she said she was feeling better. Her heart rate had increased into the 60s, off the pacer. Consideration was being given to anticoagulation. She did have typical incisional discomfort and back pain. Chest x-ray showed improvement in the left effusion. She was in a normal sinus rhythm with PVCs. Amiodarone was added to her regimen. Coumadin was started. She was changed to Coreg. Her abdomen was soft and nontender. On 12/11/2016, she did have a couple of bowel movements. Coumadin had begun. She was ambulatory and performing incentive spirometry. Routine postop care continued. The next day, her INR level was 1.2. She had no new complaints. Discharge planning was performed. INR level was 1.3. Lasix was given. On 12/13/2016, she was alert. She was in no acute distress. Her lungs were clear. She had no edema. INR level was 1.8. She had diuresed well. Discharge instructions were given. Due to her improved and stable condition, she was discharged home with the above-stated instructions. Information collected by: Tri Ayoub I submit the above information as my discharge summary. CRYSTAL/EMA Abhijit Malone M.D. / [id number] CC: John Purcell M.D. William Warren, M.D.
[~2016-12-07 06:53] MED LIST changes: +KLOR-CON 1010 MEQ PO; +L20 PO; +LOP25 PO; +SPIRO25 PO
[2016-12-07 16:15] LABS: BE (BASE EXCESS) -5.6 MEQ/L (0 +/- 2.5); CARBOXYHEMOGLOBIN 0.1 % (0-3); HCO3 (ACTUAL BICARBONATE) 21.5 MEQ/L (23-27); HEMOBLOGIN CONTENT 13.7 G/DL (12-16); INSTRUMENT SERIAL # 11843; METHEMOGLOBIN 0.2 % (0-3); MODE SIMV; O2 CONTENT 19.7 VOL% (18-24); OPERATOR ID 14472; PCO2 (CO2 TENSION) 48 MMHG (35-45); PO2 (O2 TENSION) 311 MMHG (79-93); SAMPLE Arterial; pH 7.27 (7.37-7.43)
[2016-12-07 16:16] LABS: TIDAL VOLUME 650 ML
[2016-12-07 16:25] LABS: HEMATOCRIT 39.9 % (36.0-48.0)
[2016-12-07 16:35] LABS: BUN (BLOOD UREA NITROGEN) 22 MG/DL (6-23); CALCIUM, SERUM 7.3 MG/DL (8.5-10.4); CHLORIDE, SERUM 114 MMOL/L (96-112); CO2 (CARBON DIOXIDE) 24 MMOL/L (24-34); CREATININE 1.18 MG/DL (0.55-1.02); GFR AFRICAN AMERICAN 55 ML/MIN (>=60); GFR NON AFRICAN AMERICAN 47 ML/MIN (>=60); GLUCOSE, SERUM 91 MG/DL (60-99); POTASSIUM, SERUM 4.4 MMOL/L (3.5-5.3); SODIUM, SERUM 144 MMOL/L (135-148)
[2016-12-07 16:50] LABS: PARTIAL THROMBO TIME 33.6 SEC (22.5-37.2)
[2016-12-07 16:55] LABS: PROTIME (NOT ORD) 22.7 SEC (12.0-14.5)
[2016-12-07 21:26] LABS: HEMATOCRIT 39.9 % (36.0-48.0)
[2016-12-07 21:36] LABS: POTASSIUM, SERUM 4.4 MMOL/L (3.5-5.3)
[2016-12-07 22:30] LABS: BE (BASE EXCESS) -7.6 MEQ/L (0 +/- 2.5); CARBOXYHEMOGLOBIN 0.9 % (0-3); DEVICE NC; HCO3 (ACTUAL BICARBONATE) 17.8 MEQ/L (23-27); HEMOBLOGIN CONTENT 13.7 G/DL (12-16); INSTRUMENT SERIAL # 11843; METHEMOGLOBIN 0.1 % (0-3); O2 CONTENT 17.8 VOL% (18-24); OPERATOR ID 32193; PCO2 (CO2 TENSION) 36 MMHG (35-45); PO2 (O2 TENSION) 79 MMHG (79-93); SAMPLE Arterial; pH 7.31 (7.37-7.43)
[2016-12-08 03:43] LABS: BASOPHILS 0.1 %; BASOPHILS ABSOLUTE 0.01 10/3/uL (0.0-0.16); EOSINOPHILS 0 %; HEMATOCRIT 37.9 % (36.0-48.0); HEMOGLOBIN 12.3 g/dL (12.0-16.0); IMMATURE GRANULOCYTES 0.3 %; IMMATURE GRANULOCYTES ABSOLUTE 0.04 10/3/uL (0.0-0.11); LYMPHOCYTES 5.1 %; LYMPHOCYTES ABSOLUTE 0.69 10/3/uL (0.67-4.30); MEAN CORPUS HGB CONC 32.5 g/dL (32.0-36.0); MEAN CORPUSCULAR HEMOGLOB 29.5 pg (26.0-34.0); MEAN CORPUSCULAR VOLUME 90.9 fL (80-100); MEAN PLATELET VOLUME 12.9 fL (9.2-13.0); MONOCYTES ABSOLUTE 0.67 10/3/uL (0.21-1.20); NEUTROPHILS 89.5 %; NEUTROPHILS ABSOLUTE 12.02 10/3/uL (2.02-8.40); RBC DISTRIBUTION WIDTH 15.2 % (12.0-16.0); RED CELL COUNT 4.17 10/6/uL (4.0-5.6)
[2016-12-08 03:45] LABS: WHITE BLOOD CELLS 13.4 10/3/uL (4.5-10.5)
[2016-12-08 03:46] LABS: PLATELET COUNT 60 10/3/uL (150-400)
[2016-12-08 03:47] LABS: MANUAL DIFF NO %
[2016-12-08 03:50] LABS: INTERNATIONAL NORMAL RATI 1.3 UNITS (-); PROTIME (NOT ORD) 16.4 SEC (12.0-14.5)
[2016-12-08 03:55] LABS: BUN (BLOOD UREA NITROGEN) 35 MG/DL (6-23); CHLORIDE, SERUM 112 MMOL/L (96-112); CO2 (CARBON DIOXIDE) 17 MMOL/L (24-34); CREATININE 1.48 MG/DL (0.55-1.02); GFR AFRICAN AMERICAN 42 ML/MIN (>=60); GFR NON AFRICAN AMERICAN 36 ML/MIN (>=60); GLUCOSE, SERUM 137 MG/DL (60-99); POTASSIUM, SERUM 4.1 MMOL/L (3.5-5.3); SODIUM, SERUM 142 MMOL/L (135-148)
[2016-12-08 04:05] LABS: BURR CELLS 1+ (3-10/OIF) (0-2/OIF); PLATELET ESTIMATE DEC (ADEQUATE); TEARDROP SHAPED RBCS FEW (3-10/OIF)
[2016-12-08 16:37] LABS: HEMATOCRIT 34.3 % (36.0-48.0); HEMOGLOBIN 11.3 g/dL (12.0-16.0)
[2016-12-09 05:12] LABS: BASOPHILS 0 %; EOSINOPHILS 0 %; HEMATOCRIT 31.3 % (36.0-48.0); HEMOGLOBIN 10.7 g/dL (12.0-16.0); IMMATURE GRANULOCYTES 0.4 %; IMMATURE GRANULOCYTES ABSOLUTE 0.08 10/3/uL (0.0-0.11); LYMPHOCYTES 6.9 %; MONOCYTES 6.5 %; MONOCYTES ABSOLUTE 1.22 10/3/uL (0.21-1.20); NEUTROPHILS 86.2 %; NEUTROPHILS ABSOLUTE 16.17 10/3/uL (2.02-8.40); PLATELET COUNT 60 10/3/uL (150-400); RBC DISTRIBUTION WIDTH 15.2 % (12.0-16.0); RED CELL COUNT 3.57 10/6/uL (4.0-5.6)
[2016-12-09 05:13] LABS: MANUAL DIFF NO %; MEAN CORPUS HGB CONC 34.2 g/dL (32.0-36.0); MEAN CORPUSCULAR VOLUME 87.7 fL (80-100); WHITE BLOOD CELLS 18.8 10/3/uL (4.5-10.5)
[2016-12-09 05:26] LABS: CALCIUM, SERUM 8.3 MG/DL (8.5-10.4); CHLORIDE, SERUM 107 MMOL/L (96-112); CREATININE 1.01 MG/DL (0.55-1.02); GFR AFRICAN AMERICAN 66 ML/MIN (>=60); GFR NON AFRICAN AMERICAN 57 ML/MIN (>=60); POTASSIUM, SERUM 4.7 MMOL/L (3.5-5.3); SODIUM, SERUM 137 MMOL/L (135-148)
[2016-12-09 05:27] LABS: BUN (BLOOD UREA NITROGEN) 44 MG/DL (6-23); CO2 (CARBON DIOXIDE) 22 MMOL/L (24-34); GLUCOSE, SERUM 87 MG/DL (60-99)
[2016-12-09 05:34] LABS: PLATELET ESTIMATE DEC (ADEQUATE); RBC MORPHOLOGY NORM (NORMAL)
[2016-12-09 16:38] LABS: POTASSIUM, SERUM 5.8 MMOL/L (3.5-5.3)
[2016-12-10 02:27] LABS: BASOPHILS 0.1 %; BASOPHILS ABSOLUTE 0.01 10/3/uL (0.0-0.16); EOSINOPHILS 0 %; HEMATOCRIT 31.5 % (36.0-48.0); HEMOGLOBIN 10.5 g/dL (12.0-16.0); IMMATURE GRANULOCYTES 0.5 %; IMMATURE GRANULOCYTES ABSOLUTE 0.08 10/3/uL (0.0-0.11); LYMPHOCYTES 8.2 %; MEAN CORPUS HGB CONC 33.3 g/dL (32.0-36.0); MEAN CORPUSCULAR HEMOGLOB 29.4 pg (26.0-34.0); MEAN CORPUSCULAR VOLUME 88.2 fL (80-100); MEAN PLATELET VOLUME 13.7 fL (9.2-13.0); MONOCYTES 8.6 %; MONOCYTES ABSOLUTE 1.36 10/3/uL (0.21-1.20); NEUTROPHILS 82.6 %; NEUTROPHILS ABSOLUTE 13.15 10/3/uL (2.02-8.40); RBC DISTRIBUTION WIDTH 15.5 % (12.0-16.0); RED CELL COUNT 3.57 10/6/uL (4.0-5.6); WHITE BLOOD CELLS 15.9 10/3/uL (4.5-10.5)
[2016-12-10 02:33] LABS: MANUAL DIFF NO %; PLATELET COUNT 81 10/3/uL (150-400)
[2016-12-10 02:41] LABS: CALCIUM, SERUM 8.3 MG/DL (8.5-10.4); CHLORIDE, SERUM 102 MMOL/L (96-112); GFR AFRICAN AMERICAN 76 ML/MIN (>=60); GFR NON AFRICAN AMERICAN 66 ML/MIN (>=60); SODIUM, SERUM 137 MMOL/L (135-148)
[2016-12-10 03:00] LABS: BUN (BLOOD UREA NITROGEN) 39 MG/DL (6-23); CO2 (CARBON DIOXIDE) 28 MMOL/L (24-34); GLUCOSE, SERUM 116 MG/DL (60-99); POTASSIUM, SERUM 4.4 MMOL/L (3.5-5.3)
[2016-12-10 03:28] LABS: PLATELET ESTIMATE DEC (ADEQUATE)
[2016-12-10 03:31] LABS: RBC MORPHOLOGY NORM (NORMAL)
[2016-12-11 04:32] LABS: BASOPHILS 0.1 %; BASOPHILS ABSOLUTE 0.01 10/3/uL (0.0-0.16); EOSINOPHILS 0.3 %; EOSINOPHILS ABSOLUTE 0.03 10/3/uL (0.0-0.53); HEMATOCRIT 29.3 % (36.0-48.0); HEMOGLOBIN 9.8 g/dL (12.0-16.0); IMMATURE GRANULOCYTES 0.4 %; IMMATURE GRANULOCYTES ABSOLUTE 0.04 10/3/uL (0.0-0.11); LYMPHOCYTES 12.4 %; LYMPHOCYTES ABSOLUTE 1.13 10/3/uL (0.67-4.30); MEAN CORPUS HGB CONC 33.4 g/dL (32.0-36.0); MEAN CORPUSCULAR HEMOGLOB 29.7 pg (26.0-34.0); MEAN CORPUSCULAR VOLUME 88.8 fL (80-100); MEAN PLATELET VOLUME 12.9 fL (9.2-13.0); MONOCYTES 10.9 %; MONOCYTES ABSOLUTE 0.99 10/3/uL (0.21-1.20); NEUTROPHILS 75.9 %; NEUTROPHILS ABSOLUTE 6.91 10/3/uL (2.02-8.40); PLATELET COUNT 73 10/3/uL (150-400); RBC DISTRIBUTION WIDTH 15.3 % (12.0-16.0)
[2016-12-11 04:34] LABS: MANUAL DIFF NO %; WHITE BLOOD CELLS 9.1 10/3/uL (4.5-10.5)
[2016-12-11 04:36] LABS: INTERNATIONAL NORMAL RATI 1.2 UNITS (-)
[2016-12-11 04:44] LABS: CALCIUM, SERUM 8.2 MG/DL (8.5-10.4); CHLORIDE, SERUM 101 MMOL/L (96-112); CO2 (CARBON DIOXIDE) 29 MMOL/L (24-34); CREATININE 0.84 MG/DL (0.55-1.02); GFR AFRICAN AMERICAN 83 ML/MIN (>=60); GFR NON AFRICAN AMERICAN 71 ML/MIN (>=60); GLUCOSE, SERUM 94 MG/DL (60-99); POTASSIUM, SERUM 3.9 MMOL/L (3.5-5.3); SODIUM, SERUM 136 MMOL/L (135-148)
[2016-12-11 04:46] LABS: BUN (BLOOD UREA NITROGEN) 28 MG/DL (6-23)
[2016-12-11 06:21] LABS: GIANT PLATELET OCC; PLATELET ESTIMATE DEC (ADEQUATE)
[2016-12-12 05:11] LABS: BASOPHILS 0.3 %; BASOPHILS ABSOLUTE 0.02 10/3/uL (0.0-0.16); EOSINOPHILS 1.2 %; EOSINOPHILS ABSOLUTE 0.09 10/3/uL (0.0-0.53); HEMATOCRIT 30.1 % (36.0-48.0); IMMATURE GRANULOCYTES 0.4 %; IMMATURE GRANULOCYTES ABSOLUTE 0.03 10/3/uL (0.0-0.11); LYMPHOCYTES 12.6 %; LYMPHOCYTES ABSOLUTE 0.93 10/3/uL (0.67-4.30); MEAN CORPUS HGB CONC 33.2 g/dL (32.0-36.0); MEAN CORPUSCULAR HEMOGLOB 29.6 pg (26.0-34.0); MEAN CORPUSCULAR VOLUME 89.1 fL (80-100); MEAN PLATELET VOLUME 12.2 fL (9.2-13.0); MONOCYTES 12.5 %; MONOCYTES ABSOLUTE 0.92 10/3/uL (0.21-1.20); NEUTROPHILS ABSOLUTE 5.37 10/3/uL (2.02-8.40); PLATELET COUNT 85 10/3/uL (150-400); RBC DISTRIBUTION WIDTH 15.6 % (12.0-16.0); RED CELL COUNT 3.38 10/6/uL (4.0-5.6); WHITE BLOOD CELLS 7.4 10/3/uL (4.5-10.5)
[2016-12-12 05:12] LABS: MANUAL DIFF NO %
[2016-12-12 05:19] LABS: INTERNATIONAL NORMAL RATI 1.3 UNITS (-); PROTIME (NOT ORD) 16.5 SEC (12.0-14.5)
[2016-12-12 05:27] LABS: BUN (BLOOD UREA NITROGEN) 28 MG/DL (6-23); CALCIUM, SERUM 8.3 MG/DL (8.5-10.4); CHLORIDE, SERUM 100 MMOL/L (96-112); CO2 (CARBON DIOXIDE) 29 MMOL/L (24-34); CREATININE 0.84 MG/DL (0.55-1.02); GFR AFRICAN AMERICAN 83 ML/MIN (>=60); GFR NON AFRICAN AMERICAN 71 ML/MIN (>=60); GLUCOSE, SERUM 84 MG/DL (60-99); POTASSIUM, SERUM 4.2 MMOL/L (3.5-5.3); SODIUM, SERUM 136 MMOL/L (135-148)
[2016-12-13 04:24] LABS: BASOPHILS 0.4 %; BASOPHILS ABSOLUTE 0.03 10/3/uL (0.0-0.16); EOSINOPHILS ABSOLUTE 0.21 10/3/uL (0.0-0.53); HEMATOCRIT 30.9 % (36.0-48.0); HEMOGLOBIN 10.5 g/dL (12.0-16.0); IMMATURE GRANULOCYTES 1.1 %; IMMATURE GRANULOCYTES ABSOLUTE 0.08 10/3/uL (0.0-0.11); LYMPHOCYTES ABSOLUTE 1.05 10/3/uL (0.67-4.30); MEAN CORPUSCULAR HEMOGLOB 30.2 pg (26.0-34.0); MEAN CORPUSCULAR VOLUME 88.8 fL (80-100); MEAN PLATELET VOLUME 11.6 fL (9.2-13.0); MONOCYTES 11.6 %; MONOCYTES ABSOLUTE 0.81 10/3/uL (0.21-1.20); NEUTROPHILS 68.9 %; NEUTROPHILS ABSOLUTE 4.82 10/3/uL (2.02-8.40); PLATELET COUNT 100 10/3/uL (150-400); RBC DISTRIBUTION WIDTH 15.4 % (12.0-16.0); RED CELL COUNT 3.48 10/6/uL (4.0-5.6)
[2016-12-13 04:34] LABS: BUN (BLOOD UREA NITROGEN) 27 MG/DL (6-23); CALCIUM, SERUM 8.5 MG/DL (8.5-10.4); CHLORIDE, SERUM 96 MMOL/L (96-112); CO2 (CARBON DIOXIDE) 30 MMOL/L (24-34); CREATININE 0.99 MG/DL (0.55-1.02); GFR AFRICAN AMERICAN 68 ML/MIN (>=60); GFR NON AFRICAN AMERICAN 59 ML/MIN (>=60); GLUCOSE, SERUM 88 MG/DL (60-99); POTASSIUM, SERUM 4.1 MMOL/L (3.5-5.3); SODIUM, SERUM 134 MMOL/L (135-148)
[2016-12-13 04:36] LABS: MANUAL DIFF NO %
[2016-12-13 04:45] LABS: INTERNATIONAL NORMAL RATI 1.8 UNITS (-)
[2016-12-13 04:47] LABS: PROTIME (NOT ORD) 20.8 SEC (12.0-14.5)
[2016-12-13] MEDS ORDERED: ASAB PO (11:56)
[2016-12-13] MEDS ORDERED: COREG3 PO (11:58)
[2016-12-13] MEDS ORDERED: CORDARONE PO (11:58)
[2016-12-13] MEDS ORDERED: LIPITOR40 PO (12:00)
[2016-12-13] MEDS ORDERED: COZ25 PO (12:05)
[2016-12-13] MEDS ORDERED: COUMADIN3 MG (12:06)
[2016-12-13] MEDS ORDERED: NORCO1 TA1 PO (12:12)
== END 2016-12-13 14:02 | disposition home or self-care (01) | DRG 220 ==
LOC: SDC/OF 06:53 → CVICU 12:54 → 5NO 12-10 09:57
PROVIDERS: Nurse Practitioner Adult Health; Thoracic Surgery (Cardiothoracic Vascular Surgery)
DX: I08.1 Rheumatic disorders of both mitral and tricuspid valves (principal); I50.22 Chronic systolic (congestive) heart failure; I11.0 Hypertensive heart disease with heart failure; Z99.81 Dependence on supplemental oxygen; I48.1 Persistent atrial fibrillation; E66.01 Morbid (severe) obesity due to excess calories; I48.2 Chronic atrial fibrillation; Z68.39 Body mass index [BMI] 39.0-39.9, adult; G47.33 Obstructive sleep apnea (adult) (pediatric)
CPT/HCPCS: 36415; 71010; 71020; 80048; 80053; 81001; 82330; 82803; 82805; 82947; 82962; 83036; 83540; 83550; 83735; 84132; 84295; 85014; 85018; 85025; 85347; 85610; 85730; 86850; 86900; 86901; 86920; 87641; 88304; 88305; 93005; 93312; 93320; 93325; 94002; 94640; 94660; 94770; A9270-GY; C1713; C1769; C2618; J0360; J0690; J1644; J1940; J2150; J2250; J2370; J2405; J2440; J2720; J2795; J2930; J3010; J3475; J3480; P9045; P9047